=== PATIENT | male | born 1995 | race Two or more races ===

== ENCOUNTER 2024-08-08 21:09 | Emergency (ER) | payer MEDICAID, OTHER ==
[~2024-08-08] VITALS: Ht 170.2 cm; Wt 80.0 kg
[2024-08-08] MEDS: IBUPROFEN 800 MG TAB PO ONE (23:39)
[2024-08-09] MEDS: SODIUM CHLORIDE 0.9% 1,000 ML IV ONE (00:45)
[2024-08-09 00:54] VITALS: PULSE 86; RESP 16; O2SAT 96
[2024-08-09] MEDS: PROPOFOL 10 MG/ML 20 ML IV ONE (01:26)
[2024-08-09 02:23] VITALS: BP 128/81; PULSE 79; RESP 16; TEMP 97.7; O2SAT 97
== END 2024-08-09 03:35 | disposition home or self-care (01) ==
LOC: ER 21:09
DX: S43.005A Unspecified dislocation of left shoulder joint, initial encounter (principal); W18.30XA Fall on same level, unspecified, initial encounter; Y93.89 Activity, other specified; Y92.89 Other specified places as the place of occurrence of the external cause; Y99.8 Other external cause status
CPT/HCPCS: 23650; 73030; 96360; 99152; 99153; 99285; J2704; J7030; 96361